=== PATIENT | male | born 1985 | race Caucasian/White ===

== ENCOUNTER 2018-08-21 14:40 | Inpatient (IN) | payer MEDICAID, OTHER ==
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
[2018-08-21 14:59] LABS: PLATELET COUNT 232 10^3/uL (150-400)
[2018-08-21] MEDS ORDERED: OLANZapine DISINTEGR 5 MG TAB PO ONE (15:08)
[2018-08-21] MEDS ORDERED: TDAP ADULT 0.5 ML INJ (BOOSTRIX) IM ONE (15:34)
--- NOTE | 2018-08-22 09:21 | ASMTTCLDSP ---
[facility] Discharge Disposition Disposition: Answers: Admit Disposition Notes: Notes: Admit 3[facility]. Discharge Concerns/Recommendations: Notes: In consultation with [facility] ED physician, Chuck Whitman MD and on-call psychiatrist, Jean Carlos Lugo MD, both concurred that pt appears to meet 27-65 criteria requiring psychiatric hospitalization as pt appears to be at risk of harm to others and gravely disabled due to a mental illness condition. Pt was given but did not sign the prohibited belongings checklist. Was patient given the Answers: Yes Inpatient Behavioral Health Prohibited Belongings List while in the ED? For inpatient Jean Carlos Lugo MD admission, the following psychiatrist agreed to accept patient for admission to Behavioral Health ([facility]): Type of Hold: Answers: M1/72-hour Hold Hold initiated by: Answers: Other Notes: [facility] clinician Date Signed: 08/22/2018 09:21 AM Electronically Signed By:Fabrizio Howell
--- NOTE | 2018-08-22 09:23 | ASMTLCPROG ---
Notes Note: Notes: [facility] report and [place] history faxed to [facility]. 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
[2018-08-22] MEDS ORDERED: OLANZapine DISINTEGR 10 MG TAB PO PRN (12:09)
[2018-08-22] MEDS ORDERED: ACETAMINOPHEN 325 MG TAB PO PRN (12:09)
[2018-08-22] MEDS ORDERED: MAG HYDROX/AL HYDROX/SIMETH 30 ML UDCUP PO PRN (12:09)
[2018-08-22] MEDS ORDERED: MAGNESIUM HYDROXIDE 30 ML UDCUP PO PRN (12:09)
[2018-08-22] MEDS ORDERED: OLANZapine DISINTEGR 5 MG TAB PO ONE (12:15)
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
--- NOTE | 2018-08-22 20:49 | BAPA ---
DATE OF SERVICE: 08/22/2018 CHIEF COMPLAINT: "I was using Adderall. I took some Adderall. I think I took too much. I was not as paranoid as they say I was. I was not doing the things that they said I was doing." HISTORY OF PRESENT ILLNESS: Pertinent data from the ED note dated 08/21/2018: The patient presented to the emergency department via EMS on an M1 hold by [facility] for being gravely disabled. The patient has a history of schizophrenia, delusional disorder, antisocial personality disorder, and has been off his medications for approximately 2 months. The patient was having paranoid delusions and carrying around a kitchen knife for protection. The patient was hiding knives. The patient has reported auditory hallucinations and hearing voices. The patient has a pending charge for child abuse, drug use , and paraphernalia and assault. The patient admitted to Adderall use over the last few days. The patient denied methamphetamine use. The patient complained of burning his right forearm 4 days ago and redness in the area. The patient's family, with whom he lives, became concerned regarding the patient 's increased paranoia and medication nonadherence and referred the patient to [facility]. Once evaluated at [facility], patient was placed on an M1 hold and sent to the [facility] emergency room for being gravely disabled. The patient communicates minimally with this CITY CARRIER ASSISTANT, little information regarding History of Present Illness is gathered during initial interview. Will continue to gather information regarding HPI throughout patient's hospitalization. The patient does not report psychosis including auditory or visual hallucinations; patient did report auditory hallucinations at time of presenting to ER. The patient denies these symptoms when asked if the patient is currently experiencing auditory or visual hallucinations. The patient reports a history of depression. Reports he has recently been prescribed Wellbutrin. PAST PSYCHIATRIC HISTORY: From [facility], the patient was at [facility] following 18 months at [facility]. The patient reported it was traumatic to be there for something he did not actually do. [facility] reported that this was one of the patient's delusions. The patient was stable on medications, applied for Medicaid benefits while at [facility]. The patient was polite, cooperative, and was amenable to taking medications and continuing with treatment. The patient was discharged from [facility] on Wellbutrin ER 150 mg daily and olanzapine 10 mg p.o. q.h.s. The patient was homeless so, after discharging from [facility], he stepped down to [facility] and then to [facility], continuing on same medications, sleeping well, reporting no symptoms, so no medication changes were made. The patient discharged from [facility] after 2 weeks on 03/07/2018. The patient had just started a new job at [employer] and was going to his mother's home. The patient went to a therapy appointment at [facility] on 04/17/2018. The patient never showed up for any appointments after that and has not been seen by any prescribers at [facility] since he left [facility] the part February 2018. The patient was diagnosed with other specified schizophrenia spectrum and other psychiatric disorder, delusional disorder related to him feeling he was punished for a crime he did not commit, antisocial personality disorder, and alcohol use disorder, moderate. Will continue to gather past history throughout patient's hospitalization. ALLERGIES: Amoxicillin, penicillins. CURRENT MEDICATIONS: The patient was willing to discuss medications with this CITY CARRIER ASSISTANT. The patient reported being on Wellbutrin. The patient agreed to Zyprexa Zydis 5 mg p.o. once at time of admission for acute agitation. The patient also agreed to Zyprexa Zydis 5 mg p.o. q.h.s. scheduled. The patient agreed to follow up with this CITY CARRIER ASSISTANT tomorrow during a.m. rounds to further discuss medications and treatment. PAST MEDICAL HISTORY: The patient was seen by Dr. Hu today for an internal medicine consultation for medical clearance for inpatient behavioral health stay. The patient reported 2 skin lesions, which he thinks are from burning himself on a grill, on his right forearm. Otherwise, the patient was without any acute medical complaints. PAST MEDICAL HISTORY: Includes a diagnosis of schizophrenia and suturing of a laceration remotely. The patient reported not taking psychiatric medications for several months and did report being on both olanzapine and Wellbutrin. The patient's family history was noncontributory. The patient denied fevers, chills , weight gain or weight loss, pain, dyspnea, cough, nausea, vomiting, constipation or diarrhea, and otherwise a 10-point review of symptoms is negative. SOCIAL HISTORY: The patient reports working at [employer]. Reports that he thinks he may have lost his job, is unsure if he is currently unemployed. The patient reports currently living with his sister. From the [facility] report, the patient was recently homeless. However, the patient reports now living with family. Further social history will be gathered at a time when patient is more agreeable to answering interview questions and will be gathered throughout the patient's hospitalization. SUBSTANCE USE HISTORY: The patient describes being an "occasional" tobacco user and reports he "occasionally" uses alcohol. The patient reported recently abusing Adderall. Reports he "may have taken too many Adderall." The patient denied IV drug abuse and denied using methamphetamine. Toxicology screen in the urine was negative for ethyl alcohol and in the serum was non-negative for amphetamines, but was otherwise negative for substances of abuse screened. The patient reported no other substance abuse history. We will continue to gather substance use history throughout the patient's hospitalization. FAMILY PSYCHIATRIC HISTORY: The patient reported no family psychiatric history. No family history of mental illness. No family history of suicide or suicide attempts and no family history of substance use. We will continue to interview patient throughout the hospitalization regarding family psychiatric history. ADMISSION LABS AND STUDIES: CBC was completely within normal limits. Serum chemistry revealed a low carbon dioxide at 20. Otherwise, renal function and electrolytes were normal. Basic metabolic panel within normal limits. Urine drug screen is positive for amphetamines and negative for alcohol. Liver function from 08/21/2018, within normal limits except total protein was low at 5.9, albumin was low at 3.4. Lipid panel from 08/21/2018, within normal limits except cholesterol was low at 97, LDL cholesterol was low at 34, non-HDL cholesterol was low at 48, and LDL/HDL ratio was low at 0.69. Hemoglobin A1c from 08/21/2018, was 5.4, within normal limits. MENTAL STATUS EXAM: The patient is a well-nourished male looking stated chronological age. Attire is appropriate. Dress is casual. Grooming status is appropriate. Ambulation is independent. Gait is normal and coordinated. Posture is normal and relaxed. Eye contact is inappropriate and little. Motor activity is appropriate with purposeful, organized, coordinated movements with no involuntary movements noted. Attitude is uncooperative and guarded. The patient appears disinterested and does not relate well to this interviewer. Language production is spontaneous. Rate is rapid. Latency of response is shortened with irritable tone, high volume. Amount is appropriate. Articulation is clear. The patient reports mood as okay with expansive and inappropriate affect. The patient's affect is incongruent with mood. The patient's thought process is nonlinear and illogical with loose associations. The patient does not report suicidal or homicidal thoughts, ideas, or plans. The patient reports auditory hallucinations. Denies visual hallucinations. The patient reports delusions. The patient has been prior to admission carrying a kitchen knife for protection due to paranoid delusions. The patient does not appear to be attending to internal stimuli. The patient is oriented to person, place, and time. The patient's attention and concentration are poor. The patient's insight and judgment are poor. There is no evidence of gross cognitive dysfunction at any point during the interview and no evidence of apparent dysfunction in recent or remote memory noted. The patient does not report undesirable side effects from the current medications. DIAGNOSES: Based on the patient's history and current presentation, the patient 's diagnoses are: 1. Unspecified schizophrenia or other psychotic disorder. 2. Antisocial personality disorder. 3. Stimulant use disorder, severe. 4. Stimulant induced psychotic disorder FORMULATION: The patient is a 33-year-old male, single, employed, who presents to the hospital involuntarily due to being gravely disabled and is currently on an M1 hold. The patient requires continued inpatient care because of current psychosis. The patient presents with problems of the inability to appropriately care for himself including attending to his ADLs and the inability to appropriately communicate his needs, that has still been increasing over the past several weeks. The patient's life has been affected by these problems including current psychosis including auditory hallucinations , paranoia, carrying knives for protection, and being gravely disabled, unable to attend to ADLs and communicate his needs. The exacerbation of symptoms was preceded by the patient being off prescribed psychotropic medications for several months. The patient has a past psychiatric history of schizophrenia and antisocial personality disorder and has been hospitalized at both [place] and [facility] in the past. Response to treatment has been fair when patient takes medications as prescribed. The patient is at a high safety risk due to current psychosis. Protective factors while hospitalized include ongoing safety checks, active involvement in treatment, and support from our treatment team. The patient could benefit from inpatient hospitalization for safety crisis stabilization and medication evaluation. PLAN: 1. Psychotropic medications: After reviewing options, risks, and benefits with the patient, the patient agrees to continue current medications as listed above. No other medication changes at this time as more time is needed to determine ongoing tolerability and efficacy. Plan is to continue to observe patient for response and side effects from medications, and ongoing monitoring and evaluation. 2. Review with patient informed consent and recommendations for psychotropic medication treatment listed below 3. Labs: no additional labs at this time 4. Therapy: continue milieu and group therapy 5. Further investigation including gathering information from patients relatives and review of past case records to inform treatment plan. 6. Safety/Wellness plan and follow-up outpatient appointments to be established prior to discharge. Next steps are for patient to meet with child care nurse to plan a safe discharge plan and establish outpatient services for ongoing treatment. 7. Confer with inpatient treatment team regarding treatment plan. 8. Address psychosocial stressors by meeting with vp care management to establish discharge plan including referrals for outpatient services. 9. Legal status: M1 hold 10. Consider discharge next week if patient is in stable condition, safe, and has a safe discharge plan. 11. Substance abuse interventions: stimulant abuse 12. After obtaining EDELMIRA, contact patient's sister to gather additional collateral ESTIMATED LENGTH OF STAY: 5-7 days PSYCHOTROPIC MEDICATION TREATMENT INFORMED CONSENT and RECOMMENDATIONS: Review nature of condition, diagnosis, and prognosis. Review nature and purpose of psychotropic medication treatment. Review type of psychotropic medications being ordered. Review risk and benefits of psychotropic medication treatment. Review probable length of time will need to take medications. Review risk and benefits of not undergoing psychotropic medication treatment. Review alternative treatments to psychotropic medications. Review psychotropic medications contraindications, drug-drug interactions, side effects, and importance of reporting any side effects to a psychiatric provider or nurse during inpatient hospitalization, and upon discharge to patients psychiatric outpatient provider, primary care provider, or other health youth care specialist. Review importance of asking a nurse, psychiatric provider, or primary care provider any questions or problems concerning the psychotropic medications. Verify patient understands the information that has been provided, and understands, accepts, and agrees to psychotropic medications. Review patients safety plan and importance of patient to communicate to staff while hospitalized if patient is ever a danger to self/others, or unable to care for self, and upon discharge, the importance for patient to contact [facility] or 1, or go to the nearest emergency room, if patient is ever a danger to self/others, or unable to care for self. Recommend that upon discharge patient establish medication management treatment with a psychiatric provider, establishes routine therapy appointments, and follow-up with primary care provider. Verify patient understands and agrees to these recommendations. /[id number]/MODL MTDD
[2018-08-22] MEDS ORDERED: OLANZapine DISINTEGR 5 MG TAB PO SCH (21:00)
[2018-08-23] MEDS ORDERED: OLANZapine DISINTEGR 5 MG TAB PO SCH (07:08)
--- NOTE | 2018-08-23 09:23 | ASMTBHMTP ---
Master Treatment Plan Master Treatment Plan Answers: Impaired Reality for: Date: 08/23/2018 Diagnosis on Admission: Other Specified Schizophrenia Spectrum and Other Psychotic Disorder Expected length of stay: 3-5 Days Reason for admission: Notes: Per [facility] Evaluation - Pt. is a 33 year old, , ([place]) male with [place] [place]. Ct. was living with [facility] in [place] and then [facility] until today but given his decompensation due to being off his antipsychotics for 2 months and Zoloft for a year, MO reported ct. is not welcome in SOC's or [facility]'s homes and is homeless. SOC and MO called [facility] requesting a mobile response today b/c ct has been off his antipsychotics for 2 months and Zoloft for a year and taking 1/15th of the daily amount of Wellbutrin prescribed and ct is paranoia reporting AH to SOC, and threatening others with knives and hiding knives in furniture and carrying them with him. Patient's stated presenting problems: Notes: Mom called crisis worked and I was put on a hold, then brought to the hospital. Patient's goals for treatment: Notes: Try to start a schedule. Maybe read or exercise Patient's strengths: Notes: Don't know. Staying patient, staying calm Identify supports outside of hospital: Notes: Don't really have one right now Discharge criteria: Notes: Psychotic symptoms will be reduced or eliminated with return to baseline functioning in affect, thinking, and behavior prior to discharge. Initial disposition plan/considerations: Notes: Not sure where will be living Master Treatment Plan Required Signatures Psychiatrist signature: Answers: Psychiatrist: RN on-shift signature: Answers: RN: Patient signature: Answers: Patient: Date Signed: 08/23/2018 09:22 AM Electronically Signed By:Narda Mo
--- NOTE | 2018-08-23 11:00 | SOAPPROG ---
SOAP Progress Note Assessment/Plan: Assessment: Unspecified psychosis, Stimulant Use Disorder, Stimulant Induced Psychosis, Stimulant Use Withdrawal, Antisocial Personality Disorder, Hx of medication non- adherence. Improvement noted. (see subjective/objective note). Consider discharge tomorrow (Monday). Plan: 1. Psychotropic medications: After reviewing options, risks, and benefits patient agrees to continue current medications with following changes: Zyprexa Zydis 5 mg po QHS. No other medication changes at this time as more time is needed to determine ongoing tolerability and efficacy. Plan is to continue to observe patient for response and side effects from medications, and ongoing monitoring and evaluation. 2. Review with patient informed consent and recommendations for psychotropic medication treatment listed below 3. Labs: no additional labs at this time 4. Therapy: continue milieu and group therapy 5. Further investigation including gathering information from patients relatives and review of past case records to inform treatment plan. 6. Safety/Wellness plan and follow-up outpatient appointments to be established prior to discharge. Next steps are for patient to meet with career development consultant to plan a safe discharge plan and establish outpatient services for ongoing treatment. 7. Confer with inpatient treatment team regarding treatment plan. 8. Psychosocial stressors addressed through case management 9. Legal status: M1 10. Consider discharge on Monday if patient is in stable condition, safe, and has a safe discharge plan. 11. Substance abuse interventions: stimulant abuse PSYCHOTROPIC MEDICATION TREATMENT INFORMED CONSENT and RECOMMENDATIONS: Review nature of condition, diagnosis, and prognosis. Review nature and purpose of psychotropic medication treatment. Review type of psychotropic medications being ordered. Review risk and benefits of psychotropic medication treatment. Review probable length of time patient will need to take medications. Review risk and benefits of not undergoing psychotropic medication treatment. Review alternative treatments to psychotropic medications. Review psychotropic medications contraindications, drug-drug interactions, side effects, and importance of reporting any side effects to a psychiatric provider or nurse during inpatient hospitalization, and upon discharge to patients psychiatric outpatient provider, primary care provider, or other health childcare aide. Review importance of asking a nurse, psychiatric provider, or primary care provider any questions or problems concerning the psychotropic medications. Verify patient understands the information that has been provided, and understands, accepts, and agrees to psychotropic medications. Review patients safety plan and importance of patient to report to staff while hospitalized if patient is ever a danger to self/others, or unable to care for self, and upon discharge, the importance for patient to contact [facility] or [facility], or go to the nearest emergency room, if patient is ever a danger to self/others, or unable to care for self. Recommend that upon discharge patient establish medication management treatment with a psychiatric provider, establishes routine therapy appointments, and follow-up with primary care provider. Verify patient understands and agrees to these recommendations. 08/23/18 11:00 Subjective: Following up with patient for evaluation of psychosis and safety. Patient reports, "Feeling better since been here." Patient expresses the following psychiatric symptoms none, reports feeling "really tired." Patient reports no paranoia, no A/V hallucinations. Patient reports taking "several Adderall days before" admission. Patient reports taking medications as prescribed, and describes response to medications as good. Patient reports not taking Zyprexa 10 mg po QHS as prescribed for several months due to over sedation side effect. Patient requests Zyprexa Zydis 5 mg po QHS due to being over sedated upon awakening at 10 mg po QHS. Patient does not report undesirable side effects from the medications, and agrees to continue current medications. Patient describes getting 8 hours of sleep. Patient reports he is unsure if he will return to his sister's home after discharging from hospital, and reports he plans to contact her today and make plans for discharge. Objective: Vital Signs Temp Pulse Resp BP Pulse Ox 36.9 C 79 16 142/89 H 95 08/23/18 06:00 08/23/18 06:00 08/23/18 06:00 08/23/18 06:00 08/23/18 06:00 NURSING REPORT: Consulted with nursing for update on patients progress in treatment. Nurses report patient is engaged in treatment, is not attending groups, slept 10 hours last night and slept majority of the day yesterday after admission; spends majority of the time in his room in bed sleeping; expresses the following psychiatric symptoms: moderate anxiety, exhibits the following psychiatric symptoms: withdrawn to room, flat affect; is eating all meals, is agreeable to medications and taking as prescribed with no report of side effects , with no s/s of EPS/akathisia, and denies SI/HI, denies A/V hallucinations, and denies delusions. FERRY HAND UPDATE: establish appointments at [facility] for medication management and therapy. TREATMENT TEAM: Patient met with treatment team to review treatment plan and goals for hospitalization. Patient requests to discharge tomorrow. Patient to contact family regarding place to stay after discharge. Treatment team to follow-up with patient tomorrow regarding disposition after discharge. MSE: The patient presents casually dressed and with good hygiene, and looks stated age. Patient is sitting, posture is upright, and position is relaxed. Patient appears awake, alert, and responds appropriately and reasonably during interview. Patient is engaged, relates well to interviewer, and emotional facial expression is appropriate to situation and changes appropriately with topic. Patient is cooperative, makes comfortable eye contact, and movements are voluntary, deliberate, coordinated, and smooth and even with no inappropriate movements. Patient makes laryngeal sounds effortlessly and shares conversation appropriately; pace of conversation is appropriate, and stream of talking is fluent; articulation is clear and understandable; word choice is effortless and appropriate for education level; completes sentences, occasionally pausing to think; rate and volume are appropriate for interview and setting. Patient reports mood as euthymic. Patients affect is stable with full variable range, congruent with mood, and appropriate to speech and circumstances. Patient has linear and logical thinking, with no loose associations, tangential thought, thought blocking, concrete thinking, or any other signs of formal thought disorder. Patient denies suicidal and homicidal ideation, and denies hallucinations and delusions. Patient appears to be a reliable historian with sound judgement and good insight into current condition. Patient has no apparent dysfunction in recent or remote memory noted , and no evidence of gross cognitive dysfunction noted at any point during the interview. SUBSTANCE ABUSE BRIEF INTERVENTION: Brief intervention regarding the risks of stimulant abuse is provided to patient with goal to reduce the risk of harm that could result from the continued abuse of stimulants, with the general aim to investigate the problem, raise awareness of problem, develop a solution with the patient, recommend a specific change or activity, and motivate the patient toward change. Assess substance abuse behavior and give supportive advice about harm reduction, recommend a reduction in hazardous/at-risk consumption patterns, and facilitate referrals for additional specialized treatment with resident care spec. Intermediate goal is for the patient to quit and engage in outpatient substance abuse treatment. Intervention focus on intermediate goals to allow for more immediate success in the treatment process to keep the patient motivated. Review following with patient: Stimulant abuse risks: Short- term: insomnia, irritability, aggressive behavior, hallucinations, delusions, intellectual deficits, anxiety, depression, convulsions, damage to blood vessels in the brain causing strokes, high fevers, collapse of the circulatory system. Long-term: damage to nerve pathways, maybe irreversibly; overstimulation to dopamine impairing dopamine transport and reducing efficiency of dopamine receptors, the reward system becomes worn out, leading to inability to experience pleasure for years. OUTPATIENT SUBSTANCE ABUSE TREATMENT: Patient referred to outpatient provider and treatment for continued treatment related to substance abuse. - Time Spent With Patient Time Spent With Patient: 30 minutes, met with patient individually and with patient and treatment team. - Pending Discharge Pending Discharge Within 24 Hours: Yes Pending Discharge Within 48 Hours: No Pending Discharge Date: 08/24/18 Pending Discharge Time: 11:00 ICD10 Worksheet Patient Problems: Problems Problem Status Onset Abrasion of right forearm, initial encounter Acute Acute psychosis Acute Antisocial personality disorder Acute Stimulant use disorder Acute Stimulant-induced psychotic disorder with delusions Acute Unspecified psychosis Acute
--- NOTE | 2018-08-23 12:49 | PDMN ---
Medical Necessity Medical necessity: Pt meets inpt criteria per MD order and [facility] [id number], Schizophrenia Spectrum Disorders, Adult: Inpatient Care. Pt admitted on M1 Hold due to being gravely disabled, admitted w/unspecified schizophrenia or other psychotic disorder, antisocial personality disorder, stimulant use disorder- severe, stimulant induced psychotic disorder. Pt requiring inpt psychiatric hospitalization for management of above.
--- NOTE | 2018-08-23 12:57 | ASMTCMCOM ---
CM Note CM Note Notes: Pt. and CC completed MTP and placed in chart. Pt. reports no current legal issues. Pt. reports drinking alcohol three times a week, having two drinks per sitting. Pt. reports smoking cigarettes but is unsure if he wants to quit smoking at this time. Pt. denied all other substance use. Pt. reports this being his first mental health hospitalization. Pt. denied SI, HI, AVH and paranoia. Pt. presents as alert, calm, good eye contact, somewhat passive, and with a mostly friendly demeanor. Staff report pt. sleeping throughout most of yesterday and the night. Staff report pt. is medication complaint. Date Signed: 08/23/2018 12:56 PM Electronically Signed By:Narda Mo
[2018-08-23] MEDS: OLANZapine DISINTEGR 5 MG TAB PO SCH (21:40)
[2018-08-24] MEDS ORDERED: DOXYCYCLINE HYCLATE 100 MG CAP/TAB PO ONE (08:48)
[2018-08-24] MEDS ORDERED: NEOMY SULF/BACITRAC ZN/POLY 30 GM OINTTUBE TP SCH (09:00)
[2018-08-24] MEDS ORDERED: BACITRACIN OINTMENT 1 PACKET TP ONE ×2 (09:10→10:51)
--- NOTE | 2018-08-24 12:29 | ASMTBHDC ---
Notes Note: Notes: Patient to dc to home w/ family on monday he has f/u appt with [facility] on Aug 30 at 300 pm . His f/u is with [facility] Therapist Bronwyn Parikh 08/27 at 1pm, check in at 12:45 pm, at [address] 2[address] (building just south of [address] Walker 08/29 at 2 p.m., [facility] Date Signed: 08/24/2018 12:28 PM Electronically Signed By:Varsha Bailey
--- NOTE | 2018-08-24 12:32 | ASMTCMCOM ---
CM Note CM Note Notes: Pt appears to be close to baseline denies si/hi ah/vh stabilizing has some anxiety in judgement and insight. Agreed to sign EDELMIRA with family in tx planning meeting now denies. Left EDELMIRA fo rhim to think about over the weekend and sign. He notes sleeping better with medication assistance. He appears aaox4 but presents with some noticeable anxiety regarding family contact. [facility] Date Signed: 08/24/2018 12:31 PM Electronically Signed By:Varsha Bailey
[2018-08-24] MEDS: BACITRACIN OINTMENT 1 PACKET TP SCH ×2 (12:37→21:11)
--- NOTE | 2018-08-24 15:24 | SOAPPROG ---
SOAP Progress Note Assessment/Plan: Assessment: Unspecified psychosis, Stimulant Use Disorder, Stimulant Induced Psychosis, Antisocial Personality Disorder, Hx of medication non-adherence. Decompensation noted; patient reports paranoid delusions regarding people being after him (see subjective/objective note). Patient requires continued inpatient care because of current paranoia, and requires inpatient level of care to stabilize in order to no longer be gravely disabled due to mental illness or danger to others due to paranoid delusions and his expressed need to carry knife for protection due to people being after him. Patient could benefit from continued inpatient hospitalization for crisis stabilization, safety, and medication evaluation. Plan: 1. Psychotropic medications: After reviewing options, risks, and benefits patient agrees to continue current medications: Zyprexa Zydis 5 mg po QHS. No other medication changes at this time as more time is needed to determine ongoing tolerability and efficacy. Plan is to continue to observe patient for response and side effects from medications, and ongoing monitoring and evaluation. 2. Review with patient informed consent and recommendations for psychotropic medication treatment listed below 3. Labs: no additional labs at this time 4. Therapy: continue milieu and group therapy 5. Further investigation including gathering information from patients relatives and review of past case records to inform treatment plan. 6. Safety/Wellness plan and follow-up outpatient appointments to be established prior to discharge. Next steps are for patient to meet with career agent to plan a safe discharge plan and establish outpatient services for ongoing treatment. 7. Confer with inpatient treatment team regarding treatment plan. 8. Psychosocial stressors addressed through case management 9. Legal status: VOL 10. Consider discharge on Monday if patient is in stable condition, safe, and has a safe discharge plan. 11. Substance abuse interventions: stimulant abuse PSYCHOTROPIC MEDICATION TREATMENT INFORMED CONSENT and RECOMMENDATIONS: Review nature of condition, diagnosis, and prognosis. Review nature and purpose of psychotropic medication treatment. Review type of psychotropic medications being ordered. Review risk and benefits of psychotropic medication treatment. Review probable length of time patient will need to take medications. Review risk and benefits of not undergoing psychotropic medication treatment. Review alternative treatments to psychotropic medications. Review psychotropic medications contraindications, drug-drug interactions, side effects, and importance of reporting any side effects to a psychiatric provider or nurse during inpatient hospitalization, and upon discharge to patients psychiatric outpatient provider, primary care provider, or other health direct support professional caregiver. Review importance of asking a nurse, psychiatric provider, or primary care provider any questions or problems concerning the psychotropic medications. Verify patient understands the information that has been provided, and understands, accepts, and agrees to psychotropic medications. Review patients safety plan and importance of patient to report to staff while hospitalized if patient is ever a danger to self/others, or unable to care for self, and upon discharge, the importance for patient to contact [facility] or [facility], or go to the nearest emergency room, if patient is ever a danger to self/others, or unable to care for self. Recommend that upon discharge patient establish medication management treatment with a psychiatric provider, establishes routine therapy appointments, and follow-up with primary care provider. Verify patient understands and agrees to these recommendations. 08/24/18 15:29 Subjective: Following up with patient for evaluation of psychosis and safety. Patient reports, "Continue to feel better, not as sedated in the morning with lower dose of medication before bed." Patient expresses the following psychiatric symptoms paranoid delusions. Patient reports paranoia, "People may be after me , that is why I was carrying knife around, for protection", reports no A/V hallucinations. Patient reports feeling safe here. Patient does not report undesirable side effects from the medications, and agrees to continue current medications. Patient describes getting 8 hours of sleep. Patient reports plan to return to his mothers home on Monday, and reports his mother agrees with this plan. Patient expresses that he is not interested in [facility], and reports he will take medications as prescribed after discharging from hospital. Objective: Vital Signs Temp Pulse Resp BP Pulse Ox 36.9 C 87 16 168/95 H 96 08/24/18 06:00 08/24/18 06:00 08/24/18 06:00 08/24/18 06:00 08/24/18 06:00 NURSING REPORT: Consulted with nursing for update on patients progress in treatment. Nurses report patient is not engaged in treatment, is not attending groups, slept 10 hours last night and slept majority of the day yesterday after admission; spends majority of the time in his room in bed sleeping; expresses the following psychiatric symptoms: moderate anxiety, exhibits the following psychiatric symptoms: withdrawn to room, flat affect; is eating all meals, is agreeable to medications and taking as prescribed with no report of side effects , with no s/s of EPS/akathisia, and denies SI/HI, denies A/V hallucinations, and reports paranoid delusions of people being after him prior to his admission and the need to carry a knife to protect himself prior to admission. PERFORMANCE ANALYST UPDATE: establish appointments at [facility] for medication management and therapy. TREATMENT TEAM: Patient met with treatment team to review treatment plan and goals for hospitalization. Patient requests to discharge Monday, reports he feels like he needs a few more days to stabilize. Patient reports to treatment team he felt as though he needed to carry knife for protection due to being concerned people were after him prior to his admission. Patient reports he is unsure if people are still after him. FAMILY MEETING: Patient mother reports concern for patient returning home too early and not being stable on medications. She agrees to patient returning home on Monday if patient continues to be adherent to medications, is stable, safe, and has a safe discharge plan with follow-up appointments. MSE: The patient presents casually dressed and with good hygiene, and looks stated age. Patient is sitting, posture is upright, and position is relaxed. Patient appears awake, alert, and responds appropriately and reasonably during interview. Patient is engaged, relates well to interviewer, and emotional facial expression is appropriate to situation and changes appropriately with topic. Patient is cooperative, makes comfortable eye contact, and movements are voluntary, deliberate, coordinated, and smooth and even with no inappropriate movements. Patient makes laryngeal sounds effortlessly and shares conversation appropriately; pace of conversation is appropriate, and stream of talking is fluent; articulation is clear and understandable; word choice is effortless and appropriate for education level; completes sentences, occasionally pausing to think; rate and volume are appropriate for interview and setting. Patient reports mood as euthymic. Patients affect is stable with full variable range, congruent with mood, and appropriate to speech and circumstances. Patient has linear and logical thinking, with no loose associations, tangential thought, thought blocking, concrete thinking, or any other signs of formal thought disorder. Patient denies suicidal and homicidal ideation, and denies hallucinations; patient reports paranoid delusions regarding people being after him. Patient appears to be a poor historian with poor judgement and poor insight into current condition. Patient has no apparent dysfunction in recent or remote memory noted, and no evidence of gross cognitive dysfunction noted at any point during the interview. SUBSTANCE ABUSE BRIEF INTERVENTION: Brief intervention regarding the risks of stimulant abuse is provided to patient with goal to reduce the risk of harm that could result from the continued abuse of stimulants, with the general aim to investigate the problem, raise awareness of problem, develop a solution with the patient, recommend a specific change or activity, and motivate the patient toward change. Assess substance abuse behavior and give supportive advice about harm reduction, recommend a reduction in hazardous/at-risk consumption patterns, and facilitate referrals for additional specialized treatment with home health care social worker. Intermediate goal is for the patient to quit and engage in outpatient substance abuse treatment. Intervention focus on intermediate goals to allow for more immediate success in the treatment process to keep the patient motivated. Review following with patient: Stimulant abuse risks: Short- term: insomnia, irritability, aggressive behavior, hallucinations, delusions, intellectual deficits, anxiety, depression, convulsions, damage to blood vessels in the brain causing strokes, high fevers, collapse of the circulatory system. Long-term: damage to nerve pathways, maybe irreversibly; overstimulation to dopamine impairing dopamine transport and reducing efficiency of dopamine receptors, the reward system becomes worn out, leading to inability to experience pleasure for years. OUTPATIENT SUBSTANCE ABUSE TREATMENT: Patient referred to outpatient provider and treatment for continued treatment related to substance abuse. - Time Spent With Patient Time Spent With Patient: 30 minutes, patient met with this CAKE MAKER individually and with CAKE MAKER and treatment team to review treatment plan and goals for hospitalization. - Pending Discharge Pending Discharge Within 24 Hours: No Pending Discharge Within 48 Hours: No ICD10 Worksheet Patient Problems: Problems Problem Status Onset Abrasion of right forearm, initial encounter Acute Acute psychosis Acute Antisocial personality disorder Acute Stimulant use disorder Acute Stimulant-induced psychotic disorder with delusions Acute Unspecified psychosis Acute
[2018-08-24] MEDS: OLANZapine DISINTEGR 5 MG TAB PO SCH (20:37)
[2018-08-25] MEDS ORDERED: DOXYCYCLINE HYCLATE 100 MG CAP/TAB PO ONE (09:00)
[2018-08-25] MEDS: DOXYCYCLINE HYCLATE 100 MG CAP/TAB PO SCH (09:01)
[2018-08-25] MEDS: BACITRACIN OINTMENT 1 PACKET TP SCH ×2 (09:01→20:01)
--- NOTE | 2018-08-25 14:16 | ASMTCMCOM ---
CM Note CM Note Notes: Pt. met with CC and MD. Pt. reports feeling ""fine". Pt. stated "I guess it is" when asking if his new dose of medication was working well. Pt. stated he does not have a PCP and is willing to go to [facility]. Pt. stated his dupree are fine today. Pt. stated he is not sure what his family said prior to his admission. Pt. stated he believes the main issue is carrying a knife. Pt. stated he doesn't believe if anyone would hurt him, but stated he thought he overheard his sister's friend say they may hurt him. Pt. stated when he discharges he plans to go to him mother's home to have a meeting with his sister, and then stay at his sister's home. Pt. denied SI, HI, AVH and paranoia. Pt. stated he'd rather not have a family meeting prior to discharge. Pt. presents as fairly awake, alert, calm, good eye contact, guarded, and with a mostly friendly demeanor. Staff report pt. sleeping 11 hours and being medication compliant. Pt. did sign an EDELMIRA for his mother yesterday. Date Signed: 08/25/2018 02:16 PM Electronically Signed By:Narda Mo
--- NOTE | 2018-08-25 14:43 | ASMTBHFAM ---
Notes Note: Notes: CC spoke with pt's mother, Heather, MOC stated pt. admitted he has been off his medications since May. MOC stated pt's behavior was not safe, adding he was hiding kitchen knives and other large knives around the house, and carrying an exacto knife on him. MOC stated pt. said he needed them for protection. MOC stated pt. didn't feel safe inside her home with the door locked. MOC stated in the past, 2011, pt. put a hole in her wall because he believed people were in the [place] and the ceiling could be moved to let more people in. MOC stated she has been "dealing with him since 2008". MOC stated pt. doesn't normally qualify for a M1 hold, and gets put out on the street and gets arrested. MOC asked if a "Wrap action plan" could be made with patient prior to discharge. MOC stated this plan is to recognize "relapse signals" and pt had one created with his therapist. CC informed [facility] about pt's follow up appointment on Monday, to which MOC stated that would be fine to wait for. MOC requested pt be walked to the check in desk for his follow up appointment, if possible. MOC asked about pt going to a place like [facility]. MOC stated she worries about pt's stress levels and him stressing out. MOC stated she is unsure if SOC will take pt back into her home, adding "they have to feel safe". 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 Date Signed: 08/25/2018 02:42 PM Electronically Signed By:Narda Mo
--- NOTE | 2018-08-25 16:47 | SOAPPROG ---
SOAP Progress Note Assessment/Plan: Assessment: Per Jesus Manuel Rodriguez's note: Unspecified psychosis, Stimulant Use Disorder, Stimulant Induced Psychosis, Antisocial Personality Disorder, Hx of medication non-adherence. Decompensation noted; patient reports paranoid delusions regarding people being after him (see subjective/objective note). Patient requires continued inpatient care because of current paranoia, and requires inpatient level of care to stabilize in order to no longer be gravely disabled due to mental illness or danger to others due to paranoid delusions and his expressed need to carry knife for protection due to people being after him. Patient could benefit from continued inpatient hospitalization for crisis stabilization, safety, and medication evaluation. Plan: 1. Psychotropic medications: After reviewing options, risks, and benefits patient agrees to continue current medications: Zyprexa Zydis 5 mg po QHS. No other medication changes at this time as more time is needed to determine ongoing tolerability and efficacy. Plan is to continue to observe patient for response and side effects from medications, and ongoing monitoring and evaluation. Plan: 08/25/18 16:43 1. Patient has intact bandages over dupree on right arm. 2. Patient requested lowering dose of Olanzapine d/t sedation. He says the 5mg is working "fine" and denies any SE's. 3. Patient signed EDELMIRA for CC to talk to his MOC. She says this is a "good sign" that patient is feeling less paranoid. 4. CCM Subjective: Patient sitting on edge of bed dressed in T-shirt and shorts. MD is accompanied by CC. Patient initially denies feeling scared or afraid, but then says he thought he "overheard" a friend of his SOC's say he wanted to harm patient. Patient denies intent or plan to hurt himself or anyone else. He denies any AH/ VH or other psychotic sxs. Objective: Vital Signs Temp Pulse Resp BP Pulse Ox 36.8 C 87 14 151/91 H 97 08/25/18 06:00 08/25/18 06:00 08/25/18 06:00 08/25/18 06:00 08/25/18 06:00 MSE: Affect: Flat Mood: "OK" TP: Tangential, goal-directed TC: Denies SI/HI , still some paranoia about one family friend, but denies feeling scared Insight/Judgment: Poor - Time Spent With Patient Time Spent With Patient: 15" - Pending Discharge Pending Discharge Within 24 Hours: No Pending Discharge Within 48 Hours: Yes Pending Discharge Date: 08/27/18 (February on Monday) Pending Discharge Time: 11:00 ICD10 Worksheet Patient Problems: Problems Problem Status Onset Abrasion of right forearm, initial encounter Acute Acute psychosis Acute Antisocial personality disorder Acute Stimulant use disorder Acute Stimulant-induced psychotic disorder with delusions Acute Unspecified psychosis Acute
[2018-08-25] MEDS: OLANZapine DISINTEGR 5 MG TAB PO SCH (20:01)
[2018-08-26] MEDS: BACITRACIN OINTMENT 1 PACKET TP SCH ×2 (09:08→20:11)
[2018-08-26] MEDS: DOXYCYCLINE HYCLATE 100 MG CAP/TAB PO SCH (09:08)
--- NOTE | 2018-08-26 16:50 | SOAPPROG ---
SOAP Progress Note Assessment/Plan: Assessment: Per Jesus Manuel Rodriguez's note: Unspecified psychosis, Stimulant Use Disorder, Stimulant Induced Psychosis, Antisocial Personality Disorder, Hx of medication non-adherence. Decompensation noted; patient reports paranoid delusions regarding people being after him (see subjective/objective note). Patient requires continued inpatient care because of current paranoia, and requires inpatient level of care to stabilize in order to no longer be gravely disabled due to mental illness or danger to others due to paranoid delusions and his expressed need to carry knife for protection due to people being after him. Patient could benefit from continued inpatient hospitalization for crisis stabilization, safety, and medication evaluation. Plan: 1. Psychotropic medications: After reviewing options, risks, and benefits patient agrees to continue current medications: Zyprexa Zydis 5 mg po QHS. No other medication changes at this time as more time is needed to determine ongoing tolerability and efficacy. Plan is to continue to observe patient for response and side effects from medications, and ongoing monitoring and evaluation. Plan: 08/25/18 16:43 1. Patient has intact bandages over dupree on right arm. 2. Patient requested lowering dose of Olanzapine d/t sedation. He says the 5mg is working "fine" and denies any SE's. 3. Patient signed EDELMIRA for CC to talk to his MOC. She says this is a "good sign" that patient is feeling less paranoid. 4. [facility] 08/26/18 16:46 1. Patient had dressing changed today. RN mentioned no s/s of infection. 2. MOC called and spoke to CC. MOC reports patient hasn't taken any meds since . 3. Patient is less paranoid and guarded. MOC says she is willing to have him return to her house on Monday. 4. Possible d/c tomorrow. Patient has appointment at [facility] at 12:15 on Monday. Subjective: Patient reports that he didn't sleep very well last night. 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 MOC reports patient hasn't taken his meds since May. She says whenever he stops his meds, he gets paranoid. This is happened often, and MOC and SOC usually refuse to let him stay with him and he gets picked up by police. [facility] isn't sure if [facility] will allow patient to stay with her this time. However, [facility] is willing to pick patient up on Monday after his appt at [facility]. Objective: Vital Signs Temp Pulse Resp BP Pulse Ox 36.7 C 86 14 137/88 H 94 08/26/18 06:00 08/26/18 06:00 08/26/18 06:00 08/26/18 06:00 08/26/18 06:00 MSE: Affect: More range, pleasant Mood: "Better" TP: Tangential, illogical TC : Denies any SI/HI, less paranoid Insight/Judgment: Improving - Time Spent With Patient Time Spent With Patient: 15" - Pending Discharge Pending Discharge Within 24 Hours: Yes Pending Discharge Date: 08/27/18 (Likely d/c on Monday to f/u appt at [facility] at 12: 15) Pending Discharge Time: 11:00 ICD10 Worksheet Patient Problems: Problems Problem Status Onset Abrasion of right forearm, initial encounter Acute Acute psychosis Acute Antisocial personality disorder Acute Stimulant use disorder Acute Stimulant-induced psychotic disorder with delusions Acute Unspecified psychosis Acute
[2018-08-26] MEDS: OLANZapine DISINTEGR 5 MG TAB PO SCH (20:11)
[2018-08-27 06:52] VITALS: BP 130/87
--- NOTE | 2018-08-27 08:23 | ASMTBHDC ---
Notes Note: Notes: CC was able to confirm client's discharge follow up appts with [facility]: Follow up with: [facility] [address] [place] [address] Next appointment: Monday August 27, 2018 (08/27/18) at 2:00pm, check in at 1:45pm at [address] [facility]) [facility]) [facility] [address] [place] [address] Next Appointment: Monday (08/29/18) at 2:00pm, check in at 1:45pm with Dr. Walker Date Signed: 08/27/2018 08:22 AM Electronically Signed By:Joshua Dominguez
[2018-08-27] MEDS: DOXYCYCLINE HYCLATE 100 MG CAP/TAB PO SCH (09:02)
[2018-08-27] MEDS: BACITRACIN OINTMENT 1 PACKET TP SCH (09:02)
--- NOTE | 2018-08-27 14:18 | BDS ---
REASON FOR ADMISSION: From the ED note dated 08/21/2018, the patient presented by EMS on an M1 hold by [facility] for being gravely disabled. The patient has a history of schizophrenia, delusional disorder, antisocial personality disorder, and has been off his medications for approximately 2 months. The patient reported having paranoid delusions and carrying around a kitchen knife for protection. His family was concerned regarding his paranoia and carrying the knife for protection. Patient admitted to Adderall use over the past few days prior to presenting to the emergency department. The patient denied methamphetamine use. Patient was admitted involuntarily on an M1 hold due to being gravely disabled due to a mental illness. The patient was admitted for safety, crisis stabilization, and medication management. ADMITTING DIAGNOSES: 1. Unspecified psychosis. 2. Stimulant-induced psychotic disorder with delusions. 3. Stimulant use disorder. 4. Acute psychosis. 5. Antisocial personality disorder. ADMISSION PHYSICAL EXAM: The patient was seen on 08/22/2018, for an internal medicine consultation note. The consultation was for medical clearance for inpatient Behavioral Health stay. The patient was medically cleared for inpatient psychiatric hospitalization, medications and procedures. Dr. Hu reported he saw no medical contraindications to the patient's continued stay on the inpatient behavioral health unit or to any psychiatric medications or procedures. For further details, please refer to Internal Medicine consultation note dated 08/22/2018. ADMISSION LABS: CBC was completely within normal limits. Serum chemistry revealed a low carbon dioxide at 20. Otherwise, renal function and electrolytes were normal. Hemoglobin A1c from 08/21/2018, was 5.4, within normal limits. Liver function from 08/21/2018, within normal limits, except total protein was low at 5.9, and albumin was low at 3.4. Lipid panel from , within normal limits, except cholesterol was low at 97. LDL cholesterol was low at 34. Non-HDL cholesterol was low at 48. LDL/HDL ratio was low at 0.69. Toxicology screen from 08/21/2018, non-negative for amphetamine , negative for all other substances of abuse screened, and negative for ethyl alcohol. MAJOR PROCEDURES OR TESTS: None. HOSPITAL COURSE: The most prominent symptoms and behaviors while the patient was here were paranoia. Upon admission, the patient continued to report that he felt like "people" were after him, and he would need to carry some type of weapon to protect himself. The patient reported that he stopped taking Zyprexa 10 mg p.o. q.h.s. due to feeling over-sedated in the morning and requested a lower dose. Treatment modalities utilized were milieu and group therapy. Zyprexa Zydis 5 mg p.o. q.h.s. was started to target psychosis symptoms, notably paranoia. Medication was tolerated with no report of side effects and with good response. The patient has improved considerably, with no signs of psychiatric symptoms and no psychiatric symptoms expressed at discharge. The patient reports he no longer feels as though people are after him and states he no longer feels as though he needs to protect himself, such as he was before admission by carrying a knife. The patient reports he has improved since admission, states to be in stable condition, feels safe to discharge, and he contracts for safety. Patient's response to treatment was good. There were no adverse or unexpected results of treatment. The patient was safe throughout his stay, active in treatment, engaged in groups, and was appropriate with staff and other patients. The patient met with the treatment team prior to discharge to assess readiness to discharge and review discharge plans. The treatment team consensus is the patient is in stable condition, has a safe discharge plan, and is ready to discharge today. CONDITION ON DISCHARGE: Patient is in stable condition and is no longer a danger to self or others, and is not gravely disabled due to mental illness. Patient is no longer in need of inpatient level of care, and can be safely and effectively treated within the community. The patients level of risk at time of discharge is low. MSE: The patient is casually dressed and with good hygiene , and looks stated age. Patient is sitting, posture is upright, and position is relaxed. Patient appears awake, alert, and responds appropriately and reasonably during interview. Patient is engaged, relates well to interviewer, and emotional facial expression is appropriate to situation and changes appropriately with topic. Patient is cooperative, makes comfortable eye contact , and movements are voluntary, deliberate, coordinated, and smooth and even with no inappropriate movements. Patient makes laryngeal sounds effortlessly and shares conversation appropriately; pace of conversation is appropriate, and stream of talking is fluent; articulation is clear and understandable; word choice is effortless and appropriate for education level; completes sentences, occasionally pausing to think; rate and volume are appropriate for interview and setting. Patient reports mood as euthymic. Patients affect is stable with full variable range, congruent with mood, and appropriate to speech and circumstances. Patient has linear and logical thinking, with no loose associations, tangential thought, thought blocking, concrete thinking, or any other signs of formal thought disorder. Patient denies suicidal and homicidal ideation, and denies hallucinations and delusions. Patient appears to be a reliable historian with sound judgement and good insight into current condition. Patient has no apparent dysfunction in recent or remote memory noted , and no evidence of gross cognitive dysfunction noted at any point during the interview. DISCHARGE DIAGNOSES: 1. Unspecified psychosis. 2. Stimulant-induced psychotic disorder with delusions. 3. Stimulant use disorder. 4. Acute psychosis. 5. Antisocial personality disorder. CURRENT MEDICATIONS: After reviewing options, risks and benefits with the patient, the patient agrees to continue: 1. Zyprexa 5 mg p.o. q.h.s. for psychosis. 2. Bacitracin ointment 1 application topical twice a day for 7 days, or as indicated, for wound on forearm. 3. Doxycycline hyclate 100 mg p.o. daily for 4 days. The patient requests prescriptions for these medications at time of discharge. Prescriptions are provided. A prescription for Zyprexa 5 mg p.o. q.h.s. for 30 days; bacitracin ointment, prescription is provided for 7 days; and doxycycline hyclate is provided for 4 days. Prescriptions are reviewed with the patient at time of discharge to ensure accuracy and patient understanding. [facility] to [facility] up [facility] for continued psychotropic medication evaluation and management, and patient is to follow up at [facility] for ongoing wound care and management of current medications for wound. DISPOSITION: Patient left hospital independently and voluntarily and plans to return home and stay with his mother. His mother agrees with this plan and looks forward to the patient returning home. FOLLOWUP: palliative care coordinator reports the appropriate outpatient follow-up services have been established and outpatient appointments have been scheduled. The patient received written instructions with times and dates of outpatient follow-up appointments. The following follow-up recommendations were provided to the patient at discharge: Continue psychotropic medications as prescribed and attend appointments as scheduled. Report any side effects to a psychiatric outpatient provider, a primary care provider, or other health home care nurse. Address any questions or problems concerning the psychotropic medications with a psychiatric outpatient provider, a primary care provider, or other health home care nurse. Contact [facility] or [facility], or go to the nearest emergency room, if you are ever a danger to yourself/others, or unable to care for yourself. As soon as possible, establish a routine medication management treatment with a psychiatric provider, establish routine therapy appointments, and follow-up with a primary care provider. SUBSTANCE ABUSE BRIEF INTERVENTION: Brief intervention regarding the risks of stimulant abuse is provided to patient with goal to reduce the risk of harm that could result from the continued abuse of stimulants, with the general aim to investigate the problem, raise awareness of problem, develop a solution with the patient, recommend a specific change or activity, and motivate the patient toward change. Assess substance abuse behavior and give supportive advice about harm reduction, recommend a reduction in hazardous/at-risk consumption patterns, and facilitate referrals for additional specialized treatment with daycare teacher. Intermediate goal is for the patient to quit and engage in outpatient substance abuse treatment. Intervention focus on intermediate goals to allow for more immediate success in the treatment process to keep the patient motivated. Review following with patient: Stimulant abuse risks: Short- term: insomnia, irritability, aggressive behavior, hallucinations, delusions, intellectual deficits, anxiety, depression, convulsions, damage to blood vessels in the brain causing strokes, high fevers, collapse of the circulatory system. Long-term: damage to nerve pathways, maybe irreversibly; overstimulation to dopamine impairing dopamine transport and reducing efficiency of dopamine receptors, the reward system becomes worn out, leading to inability to experience pleasure for years. OUTPATIENT SUBSTANCE ABUSE TREATMENT: Patient referred to outpatient provider and treatment for continued treatment related to substance abuse. LEGAL COURSE: The patient was admitted on an M1 hold for involuntary inpatient psychiatric hospitalization. Patient discharged today independently and voluntarily. ATTITUDE AT TIME OF DISCHARGE: The patients attitude was positive at time of discharge, and patient reports looking forward to discharging today. The patient reports he feels safe to discharge, is no longer a danger to himself or others, is in stable condition, and contracts for safety. Patient states he will continue medications as prescribed, and establish medication management treatment with an outpatient provider after discharge. Patient reports he understands the information that has been provided to him, and he understands, accepts, and agrees to psychotropic medications. Patient describes internal protective factors as the coping skills he has learned while hospitalized here, and he plans to continue to practice these coping skills after discharge. LABS AND STUDIES: There were no pending labs or studies at time of discharge. ADVANCE DIRECTIVES: There were no advance directives on file, and patient was full code during this hospitalization. The following psychotropic medication treatment informed consent and recommendations were provided to the patient at time of discharge. Patient reports he understands, accepts, and agrees to the information that has been provided. PSYCHOTROPIC MEDICATION TREATMENT INFORMED CONSENT and RECOMMENDATIONS: Review nature of condition, diagnosis, and prognosis. Review nature and purpose of psychotropic medication treatment. Review type of psychotropic medications being prescribed. Review risk and benefits of psychotropic medication treatment. Review probable length of time will need to take medications. Review risk and benefits of not undergoing psychotropic medication treatment. Review alternative treatments to psychotropic medications. Review psychotropic medications contraindications, side effects, and importance of reporting any side effects to a psychiatric provider, primary care provider, or other health home care nurse. Review importance of asking a psychiatric provider or primary care provider any questions or problems concerning the psychotropic medications. Review safety plan and the importance to contact [facility] or [facility] , or go to the nearest emergency room, if ever a danger to yourself/others, or unable to care for yourself. Recommend upon discharge to establish routine medication management treatment with a psychiatric provider, establish routine therapy appointments, and follow-up with a primary care provider. Verify patient understands, accepts, and agrees to the information that has been provided. /[id number]
== END 2018-08-27 13:49 | disposition home or self-care (01) | DRG 897 ==
LOC: EDUNIT# → BBEH 08-22 11:20
PROVIDERS: ADMIT Psychiatry & Neurology Psychiatry; ATTEND Psychiatry & Neurology Psychiatry
DX: F15.951 Other stimulant use, unspecified with stimulant-induced psychotic disorder with hallucinations (principal); F15.950 Other stimulant use, unspecified with stimulant-induced psychotic disorder with delusions; F60.2 Antisocial personality disorder; F17.210 Nicotine dependence, cigarettes, uncomplicated; F20.9 Schizophrenia, unspecified
CPT/HCPCS: 80305; G0480